=== PATIENT | male | born 2000 | race Caucasian/White ===

== ENCOUNTER 2024-03-01 05:55 | Emergency (ER) | payer BC, SELFPAY ==
[2024-03-01 05:55] VITALS: BMI 17.4
[2024-03-01 05:57] VITALS: BP 93/60
--- NOTE | 2024-03-01 06:20 | ED.GENMED ---
History of Present Illness
General
Chief Complaint: Bowel Problem
Source: patient and records
Exam Limitations: none
Time Seen by Provider: 03/01/24 06:08
Nursing documentation reviewed up to this point in time: agreed with
Travel History
Have you had any contact with someone who has COVID-19?: No
Do you have any symptoms of coronavirus? Fever > 100 degrees, chills, cough, shortness of breath, sore throat, loss of taste or smell, muscle aches, or headache?: No
History of Present Illness
History of Present Illness:
Patient is a 23-year-old male who presents to the emergency department complaining of an inability to relax his pelvic floor leading into lower abdominal discomfort that is chronic but 1 to 2 weeks ago became worse. Patient has not moved his bowels
in the last 48 hours. Patient has lost weight due to the fact that he lacks appetite and feels bloated. Patient has been fasting the last 24 hours. Patient denies any nausea or vomiting. Patient denies fever or chills. Patient does admit to
urinary hesitancy without frequency, urgency, dysuria or hematuria. Patient also has sleep apnea and has difficulty sleeping because of the anxiety associated with that. Patient has been evaluated with a sleep study and according to the patient he
is to have surgery. Patient does not wear CPAP.
Past History
Past History
ED Past Medical History: GERD, Psychiatric (Anxiety) and Other (Sleep apnea)
Social History
Tobacco: Non-smoker
Drug: None
Review of Systems
Review of Systems
All Other Systems: ROS reviewed and negative except as documented in HPI and ROS
Constitutional: Reports weight loss, fatigue and sleep disturbance; Denies fever or chills
EENT: Reports no symptoms
Respiratory: Reports no symptoms
Cardiac: Reports no symptoms
ABD/GI: Reports abdominal pain, constipated and anorexia; Denies nausea, vomiting, bloody stools or black stools
: Reports difficulty voiding; Denies dysuria, flank pain, urgency or bleeding
Musculoskeletal: Reports no symptoms
Skin: Reports no symptoms
Neurological: Reports no symptoms
Hematologic/Lymphatic: Reports no symptoms
Psychiatric: Reports anxiety
Phy Exam
Physical Exam
Physical Exam:
Physical Exam
General: No apparent distress, alert and appropriate, very thin, well hydrated
HENT: Normocephalic, supple with no lymphadenopathy, no thyromegaly
Eyes: Clear sclera, conjuctiva without injection
Heart: Regular rhythm and rate. No S3, S4. No murmur. bruit
Lungs: No respiratory distress, no stridor, lung sounds clear and equal bilaterally
Abdomen: Soft, nontender, no organomegaly, no CVA tenderness, BS good
Neuro: Alert and oriented x 3, CN II - XII intact, no motor focality, no cerebellar dysfunction
Skin: no rash. Sallow
Psychiatric: well kept. interactive and cooperative. Mildly anxious
Extremities: No edema, cyanosis, tenderness
Course
Orders/Labs/Results
Orders:
Orders
03/01/24 06:19
Urinalysis Reflex To Culture Urgent
Date Specimen was Collected: 03/01/24
Time Specimen was Collected: 06:56
CR Abdomen - 1 View Urgent
Comment:
Reason For Exam: constipation
03/01/24 06:38
Complete Blood Count/With Diff Urgent
Comprehensive Metabolic Panel Urgent
TSH Reflex To Free T4 Urgent
03/01/24 07:15
0.9% Sodium Chloride 1000 ml [Nss] 1,000 ml IV BOLUS
03/01/24 07:54
Bisacodyl [Dulcolax] 10 mg PO NOW STA
Abnormal Lab Results
03/01/24
06:38
WBC 2.8 L 10^3/uL
(4.8-10.8)
RBC 4.65 L 10^6/uL
(4.70-6.10)
Hct 38.5 L %
(39.0-52.0)
Absolute Neuts (auto) 0.7 L* 10^3/uL
(1.4-6.5)
Neutrophils % 23.6 L %
(42.2-75.2)
Lymphocytes % 64.0 H %
(20.5-51.1)
Monocytes % 10.2 H %
(1.7-9.3)
BUN 26 H mg/dl
(9-20)
Total Bilirubin 1.5 H mg/dl
(0.2-1.3)
03/01/24 06:38
03/01/24 06:38
Vital Signs
Initial and Last Documented VS:
Initial Vital Signs
Temp Pulse Resp BP Pulse Ox
98.3 F 57 16 93/60 100
03/01/24 05:57 03/01/24 05:57 03/01/24 05:57 03/01/24 05:57 03/01/24 05:57
Last Documented Vital Signs
Temp Pulse Resp BP Pulse Ox
98.3 F 57 16 93/60 100
03/01/24 05:57 03/01/24 05:57 03/01/24 05:57 03/01/24 05:57 03/01/24 05:57
*Pulse Oximetry
Patient hypoxic: no
*EKG
Interpreted by ED Provider?: NA
*Electronic Design Engineer Interpretation
Rate: Electronic Design Engineer- N/A
*Critical Care Note
Total Time (30-74mins, 75-104mins- exclusive of procedures): Not Applicable
Update Note
Update Note:
Patient's CBC abnormalities are probably due to doxepin. Patient has psychiatric issues. Will offer crisis to the patient but otherwise we will do MiraLAX as well as Metamucil.
ED Attending Note
-
Portions of this chart may have been created with voice recognition software.� Occasional wrong word or��sound alike� substitutions may have occurred due to the inherent limitations of voice recognition software.
Discharge Plan
Departure
Patient Disposition: Home (Routine Discharge)
Date of Disposition: 03/01/24
Time of Disposition: 08:37
Patient with high blood pressure during this ER visit?: No
Condition: Fair
Covid-19: Not Applicable
Discharge Problem:
Constipation
Instructions: Constipation, Adult (DC)
Prescriptions:
New
polyethylene glycol 3350 [Miralax] 17 gram powder in packet
17 g PO BID Qty: 30 0RF
psyllium husk [Fiber (psyllium husk)] 0.4 gram capsule
0.4 g PO DAILY Qty: 30 0RF
Referrals:
Paige Maldonado CRNP [Family Provider] - Follow up in 5-7 days
Interventions
Interventions:
*Risk Screen - Suicide Last Done: 03/01/24 05:57
*General Assessment Last Done: 03/01/24 05:57
*Neglect/Abuse Screening Last Done: 03/01/24 05:57
ED- Fall Risk Assessment Last Done: 03/01/24 06:03
*ED COVID-19 Vaccine History Last Done: 03/01/24 05:57
VY-Mcqjjy-Zwgqssknnd Assessment Last Done: 03/01/24 06:56
Discharge Date and Time
Print Language: EMIRATI
[2024-03-01 06:57] LABS: % Basophils 0.7 % (0-2); % Eosinophils 1.5 % (0-6); % Monocytes 10.2 % (1.7-9.3); % Neutrophils 23.6 % (42.2-75.2); Absolute Lymphocytes 1.8 10^3/uL (1.2-3.4); Absolute Monocytes 0.3 10^3/uL (0.1-0.6); Absolute Neutrophils 0.7 10^3/uL (1.4-6.5); Hematocrit 38.5 % (39.0-52.0); Hemoglobin 13.6 g/dL (13.0-18.0); Mean Corp Hgb Conc. 35.3 g/dL (33.0-37.0); Mean Corpuscular Hgb 29.2 pg (27.0-31.0); Mean Corpuscular Volume 82.8 fL (80.0-94.0); Mean Platelet Volume 10.1 fL (7.4-10.4); Nucleated Red Blood Cells % 0 % (-); Platelet Count 171 10^3/uL (130-400); Red Blood Cell Count 4.65 10^6/uL (4.70-6.10); Red Cell Dist. Width 12.8 % (11.5-14.5); White Blood Cell Count 2.8 10^3/uL (4.8-10.8)
[2024-03-01 07:07] LABS: ALT (SGPT) 35 U/L (0-50); AST (SGOT) 35 U/L (17-59); Albumin 4.8 g/dl (3.5-5.0); Alkaline Phosphatase 77 U/L (38-126); Blood Urea Nitrogen 26 mg/dl (9-20); Calcium 9.5 mg/dl (8.4-10.2); Carbon Dioxide 27 mmol/L (22-30); Chloride 101 mmol/L (98-107); Estimated Creatinine Clearance 86 ml/min; Glucose 72 mg/dl (70-99); Potassium 3.7 mmol/L (3.5-5.1); Sodium 138 mmol/L (135-145); Total Bilirubin 1.5 mg/dl (0.2-1.3); Total Protein 7.7 g/dl (6.3-8.2); eGFR > 60.00
[2024-03-01 07:37] LABS: TSH Reflex To Free T4 0.73 uIU/ml (0.47-4.68)
[2024-03-01] MEDS: DULCOLAX 10 MG PO (08:39)
[2024-03-01 09:22] LABS: Urine Albumin Negative (Neg - Trace); Urine Bilirubin Negative (Negative); Urine Character Clear (Clear); Urine Color Yellow; Urine Glucose Negative (Negative); Urine Ketone 1+ (Negative); Urine Leukocyte Negative (Negative); Urine Nitrite Negative (Negative); Urine Occult Blood Negative (Negative); Urine Urobilinogen Negative (Neg - 1+); Urine pH 6.5 (5.0-9.0)
[2024-03-01 10:02] VITALS: BP 94/70
--- NOTE | 2024-03-01 12:14 | CON.MD ---
Consultation - Medical
-
patient seen chart reviewed. patient is a 23 year old who comes to er w c/o abdominal discomfort. see dr martínez's note re cc that he could not 'relax' his pelvic floor and had not defecated in two days. he described lacking in appetite with
some five to ten lb weight loss in two months. he denied that he was trying to lose weight or restricting eating for the purpose of losing weight. he had been treated in spring at [facility] for php then iop. he said he did not continue w out
pt rx. he was placed in doxepin 12.5 daily and continues with meds he got from there on an every other day basis. he does NOT like to take medication although he feels better and sleeps better if he takes it daily. he says he was dx with ocd. he
ruminates constantly about 'fear of loss of self'. mr Ocasio tended to be vague in his answers to some of the questions i asked. i asked him about whether he experienced compulsions to do things and he said he had a 'fear of contamination ' but
did not describe doing things such as repetivie washing or cleaning to avoid contamination. as stated sleep not good without doxepin . he does not enjoy many activities. he is preoccupied with physical issues as evidenced by his visit to er today
and other visits for gi complaints noted in the chart. he describes that he was dx with sleep apnea many years ago as a sleep study was done. it seemed from the record he was heading towards surgery but when i s poke to him it appears no surgery in
the works and likely he would need another study before anyone would do anything and he said he would not have one. he does not use cpap. he denied that he has suicidal thoughts but sometimes feels it is hard to be alive. he has never made a suicide
attempt. he is aware of anticholinergic effects from doxepin although he had not connected this with his gi complaints. he does not hallucinate. energy level adequate
past psych hx see above. he has not been hospitalized psychiatrically
medical hx labs show dec wbc. dr martínez medically cleared patient.. ketones in urine one plus...bun 26 likely some dehydration. bmi on the low side 17.4 hx gerd ibs asthma in the past
family hx mom sis described as having schizophrenia father depression ocd and anxiety
substance abuse denied
social hx resides w mom dad and two sibs. one sib works at [employer] and is an artist. bro works in '[employer]' patient is hs grad. seems intelligent but never pursued college works at [employer] his hobby is 'art'
mse alert ox3 cooperative and attentive speech nl rate and tone generally goal oriented but he was often rather vague and i felt something was missing in his iterations. there seemed to be a paucity of thought and expression except around some of
his preoccupations. no overt psychosis but i wondered if there were covert psychosis mood is dysphoric affect constricted denied suicidal thoughts. intelligence seems above average insight lacking judgment seems fair
dx dysthymiia possible ocd possible early schizophrenia
recommendations patient did seem to be dysphoric. the dose of doxepin he is taking would be unlikely to be helpful for dysphoria or for ocd. i suggested php at [facility] where he could be closely monitored in the search to find a medication that might
help him. he demurred for now but will think about it. i gave him the phone numbers of [facility], of crisis and my name should he need help. he could also simply seek out patient medication monitoring at [facility] and i suggested dr yanet chandler would
be a good choice for him.she is a [facility] md who specializes in early psychosis and young adults.
== END 2024-03-01 13:13 | disposition home or self-care (01) ==
LOC: EMR 05:55
PROVIDERS: CONSULT PHYSICIAN Psychiatry & Neurology Psychiatry; EMERGENCY PHYSICIAN Emergency Medicine; FAMILY PHYSICIAN Nurse Practitioner Adult Health
DX: K59.00 Constipation, unspecified (principal); R10.30 Lower abdominal pain, unspecified; R14.0 Abdominal distension (gaseous); R45.851 Suicidal ideations; R53.83 Other fatigue; R39.11 Hesitancy of micturition; F34.1 Dysthymic disorder; R63.4 Abnormal weight loss; G47.30 Sleep apnea, unspecified; F41.9 Anxiety disorder, unspecified; K21.9 Gastro-esophageal reflux disease without esophagitis; K58.9 Irritable bowel syndrome, unspecified; Z86.16 Personal history of COVID-19
CPT/HCPCS: 99283; 74018; 80053; 81003; 84443; 85025

== ENCOUNTER 2024-09-03 21:03 | Emergency (ER) | payer BC, SELFPAY ==
[2024-09-03 21:17] VITALS: BP 98/61
--- NOTE | 2024-09-03 23:40 | ED.GENMED ---
History of Present Illness
General
Chief Complaint: Crisis Evaluation
Source: patient
Exam Limitations: none
Time Seen by Provider: 09/03/24 23:17
Nursing documentation reviewed up to this point in time: agreed with
History of Present Illness
History of Present Illness:
24-year-old male presents for evaluation by [facility] he is he has anxiety and depression, came in to talk to staff here accompanied by his father, he was been seen by crisis, cleared for discharge,
Past History
Past History
ED Past Medical History: GERD, Psychiatric (Anxiety) and Other (Sleep apnea)
Social History
Tobacco: Non-smoker
Drug: None
Personal: Single
Living: with family
Employment: Employed
Review of Systems
Review of Systems
All Other Systems: Not applicable
Constitutional: Reports sleep disturbance; Denies fever or fatigue
Psychiatric: Reports anxiety; Denies suicidal
Phy Exam
Physical Exam
Physical Exam:
Physical Exam
General: Disheveled but cooperative male
Neck: No jaundice
Heart: s1/s2 regular rate and rhythm, no murmur. equal radial pulses.
Lungs: no acute respiratory distress
Neuro: alert and oriented. no focal neurological deficits
Skin: no rash
Psychiatric: Disheveled cooperative not hallucinating
Extremities: no edema.
Course
Orders/Labs/Results
Orders:
Orders
09/03/24 21:38
Crisis Consult Urgent
Reason for Consult: severe depression, ocd, anxiety
Vital Signs
Initial and Last Documented VS:
Initial Vital Signs
Temp Pulse Resp BP Pulse Ox
96.2 F L 71 18 98/61 100
09/03/24 21:17 09/03/24 21:17 09/03/24 21:17 09/03/24 21:17 09/03/24 21:17
Last Documented Vital Signs
Temp Pulse Resp BP Pulse Ox
96.2 F L 65 18 94/52 98
09/03/24 21:17 09/04/24 00:17 09/03/24 21:17 09/04/24 00:17 09/04/24 00:17
MDM/Problems Addressed
Differential Diagnosis Includes:
Anxiety depression mental illness eating disorder
MDM/Problems Addressed:
Anxiety depression
Chronic conditions affecting care: Psychiatric illness
Acute Exacerbation and/or Progression of Chronic Illness: Psychiatric illness
*Critical Care Note
Total Time (30-74mins, 75-104mins- exclusive of procedures): Not Applicable
Update Note
Update Note:
Patient appears disheveled but cooperative not hallucinating, reviewed with crisis, cleared for discharge, patient apparently has the resources to go to a eating disorder facility
ED Attending Note
-
Portions of this chart may have been created with voice recognition software.� Occasional wrong word or��sound alike� substitutions may have occurred due to the inherent limitations of voice recognition software.
Discharge Plan
Departure
Patient Disposition: Home (Routine Discharge)
Date of Disposition: 09/03/24
Time of Disposition: 23:43
Patient with high blood pressure during this ER visit?: No
Condition: Good
Covid-19: Not Applicable
Discharge Problem:
Anxiety
Instructions: Anxiety, Adult (DC)
Prescriptions:
No Action
polyethylene glycol 3350 [Miralax] 17 gram powder in packet
17 g PO BID Qty: 30 0RF
psyllium husk [Fiber (psyllium husk)] 0.4 gram capsule
0.4 g PO DAILY Qty: 30 0RF
Referrals:
Paige Maldonado CRNP [Family Provider] - Next open appointment
Interventions
Interventions:
*Risk Screen - Suicide Last Done: 09/03/24 21:31
*General Assessment Last Done: 09/03/24 21:17
*Neglect/Abuse Screening Last Done: 09/03/24 21:17
ED- Fall Risk Assessment Last Done: 09/03/24 23:00
*ED COVID-19 Vaccine History Last Done: 09/03/24 21:17
*Nursing Disposition Last Done: 09/04/24 00:17
ED-Psychological Assessment Last Done: 09/03/24 21:31
Discharge Date and Time
Print Language: [id number]
[2024-09-04 00:17] VITALS: BP 94/52
== END 2024-09-04 00:30 | disposition home or self-care (01) ==
LOC: EMR 21:03
PROVIDERS: EMERGENCY PHYSICIAN Emergency Medicine; FAMILY PHYSICIAN Nurse Practitioner Adult Health
DX: F41.9 Anxiety disorder, unspecified (principal); K21.9 Gastro-esophageal reflux disease without esophagitis; G47.30 Sleep apnea, unspecified
CPT/HCPCS: 99282